=== PATIENT | male | born 1985 | race Caucasian/White ===

== ENCOUNTER → 2017-04-21 | Outpatient (CLI) | payer OTHER ==
[2017-04-21 14:21] LABS: CHOLESTEROL/HDL RATIO 3.8
== END | disposition home or self-care (01) ==
LOC: C.LABBC 09:54
PROVIDERS: ATTEND Physician Assistant
DX: Z00.00 Encounter for general adult medical examination without abnormal findings (principal)

== ENCOUNTER → 2017-09-15 | Outpatient (CLI) | payer OTHER | END | disposition home or self-care (01) | LOC: C.PATHSPEC 17:58 | PROVIDERS: ATTEND Urology | DX: Z30.2 Encounter for sterilization (principal) ==

== ENCOUNTER → 2017-12-31 | Outpatient (CLI) | payer OTHER ==
--- NOTE | 2017-12-31 10:07 | DIAGNOSTIC IMAGING REPORT ---
LUMBAR SPINE W/O CONTRAST CLINICAL HISTORY: 32 years-old Male presenting with M54.9 Pain of back and right lower extremity, pain with radiating into the buttock on the right and into the right leg. TECHNIQUE: Multisequence, multiplanar MR imaging of the lumbar spine was performed without the use of intravenous contrast. IV contrast: None. COMPARISON: CT of the abdomen and pelvis from 09/15/2014. FINDINGS: Localizer images: Unremarkable. Straightening of normal lumbar lordosis. Vertebral bodies maintain normal height, alignment, and bone marrow signal intensity. Intervertebral disc desiccation height loss evident at L4-5 and L5-S1. At L4-5, prominent annular fissure with mild disc bulge. This results in abutment of the bilateral exiting L4 nerve roots and transiting right L5 nerve root. Mild bilateral neural foraminal narrowing at L4-5. At L5-S1, focal central disc protrusion with mass effect on the exiting right L5 nerve root and transiting right S1 nerve root. Mild to moderate right and mild left neural foraminal narrowing. The more superior levels do not demonstrate neural foraminal or spinal canal narrowing. The spinal cord ends in good position at L1. Cauda equina normal in morphology. No paraspinal muscle edema. Remaining visualized soft tissue structures within normal limits. IMPRESSION: 1. Degenerative changes at L4-5 and L5-S1 with greater impact on exiting and transiting right L4, L5, and S1 nerve roots as detailed above. Electronically signed by: Karthik Brantley M.D. 12/31/2017 10:05 AM Dictated Date/Time: 12/31/2017 9:59 AM
== END | disposition home or self-care (01) ==
LOC: C.MRIBC 08:45
PROVIDERS: ATTEND Physician Assistant Medical
DX: M54.9 Dorsalgia, unspecified (principal)